=== PATIENT | female | born 1970 | race Caucasian/White ===

== ENCOUNTER → 2023-08-09 06:35 | Day surgery (SDC) | payer BC, SELFPAY | LOC: GI 06:35 | PROVIDERS: ATTENDING PHYSICIAN Internal Medicine | DX: Z12.11 Encounter for screening for malignant neoplasm of colon (principal); K64.8 Other hemorrhoids; K57.30 Diverticulosis of large intestine without perforation or abscess without bleeding | CPT/HCPCS: G0121 ==

== ENCOUNTER → 2023-12-21 11:13 | Outpatient (REF) | payer OTHER, SELFPAY | LOC: RAD 11:13 | PROVIDERS: ATTENDING PHYSICIAN Nurse Practitioner | DX: Z91.81 History of falling (principal) | CPT/HCPCS: 71101 ==